=== PATIENT | female | born 1940 | race Caucasian/White ===

== ENCOUNTER → 2018-11-28 15:23 | Outpatient (ROUT) | payer MEDICARE, SELFPAY ==
[2018-11-28 16:39] LABS: Add Manual Diff / Slide Review NO; Basophils Absolute Auto 100 /uL (0-100); Basophils Percent Auto 1.3 % (0-2); Eosinophils Absolute Auto 200 /uL (0-450); Eosinophils Percent Auto 4.3 % (2-4); Hemoglobin 13.1 g/dL (12.0-16.0); Lymphocytes Absolute Auto 1500 /uL (1100-4500); Lymphocytes Percent Auto 26.5 % (25-40); Mean Corpuscular HGB Conc 33.6 % (30-36); Mean Corpuscular Hemoglobin 32.8 PG (26-34); Mean Corpuscular Volume 97.6 fL (80-100); Monocytes Absolute Auto 600 /uL (0-900); Neutrophils Absolute Auto 3200 /uL (1500-7000); Neutrophils Percent Auto 57.9 % (50-75); Platelet Count 185 X10^3/uL (150-400); Red Cell Distribution Width 13.2 % (11.6-14.8); White Blood Cell Count 5.6 X10^3/uL (4.5-11.0)
[2018-11-28 16:48] LABS: Alanine Aminotransferase 176 IU/L (9-52); Albumin 3.6 g/dL (3.5-5.0); Albumin Globulin Ratio 1.2 (1.0-2.8); Alkaline Phosphatase 78 U/L (38-126); Aspartate Aminotransferase 156 IU/L (14-36); BUN Creatinine Ratio 21.7 (6-22); Blood Urea Nitrogen 13 mg/dL (7-17); Calcium 8.7 mg/dL (8.4-10.2); Carbon Dioxide 27 mmol/L (22-32); Chloride 102 mmol/L (98-107); Cholesterol 153 mg/dL (140-199); Estimated Glomerular Filt Rate > 60.0 mL/min (>60); Globulin 2.9 g/dL (1.7-4.1); Glucose 86 mg/dL (80-110); HDL Cholesterol 62 mg/dL (40-60); HEMOLYSIS < 15 (0-50); LDL Cholesterol Calculated 76 mg/dL (<100); Potassium 4.2 mmol/L (3.4-5.1); Sodium 137 mmol/L (137-145); Total Protein 6.5 g/dL (6.3-8.2); Triglycerides 74 mg/dL (35-150)
[2018-11-28 16:56] LABS: Hemoglobin A1C% w Est Avg Glu 5.3 % (4.0-6.0)
[2018-11-28 17:00] LABS: Bacteria Urine None Seen; RBC Urine None Seen (0-5/HPF); WBC Urine None Seen (0-5/HPF)
[2018-11-28 17:04] LABS: Vitamin D 25 Hydroxy (D3) 22.5 ng/mL (30.0-100.0)
[2018-11-28 17:17] LABS: TSH w/ Reflex to FT4 0.03 uIU/mL (0.47-4.68)
[2018-11-28 18:22] LABS: Appearance Urine UA CLEAR; Bilirubin Urine UA NEGATIVE (NEGATIVE); Color Urine UA YELLOW; Glucose Urine UA NEGATIVE (Negative); Ketones Urine UA NEGATIVE (NEGATIVE); Leukocyte Esterase Urine UA NEGATIVE (NEGATIVE); Nitrite Urine UA NEGATIVE (Negative); Occult Blood Urine UA NEGATIVE (Negative); Protein Urine UA NEGATIVE (Negative); Specific Gravity Urine UA <=1.005 (1.000-1.035); Urobilinogen Urine UA 0.2 E.U./dL (0.2)
[2018-11-28 18:39] LABS: Culture Indicated Urine Cult Not Indicated; Urine Comments Microscopic Normal
[2018-11-28 19:54] LABS: Free T4, Direct Thyroxine 3.02 ng/dL (0.78-2.19)
== END ==
PROVIDERS: PCP Physician Assistant; Visit Provider Internal Medicine
DX: Z00.00 Encounter for general adult medical examination without abnormal findings (principal); R73.01 Impaired fasting glucose; Z13.820 Encounter for screening for osteoporosis; D72.810 Lymphocytopenia; Z13.220 Encounter for screening for lipoid disorders; E03.9 Hypothyroidism, unspecified; E55.9 Vitamin D deficiency, unspecified
CPT/HCPCS: 80053; 80061; 81001; 82306; 83036; 84439; 84443; 85025

== ENCOUNTER → 2018-12-01 13:27 | Outpatient (CLI) | payer MEDICARE, SELFPAY ==
--- NOTE | 2018-12-01 | DI.MG.S_ITS ---
BILATERAL DIGITAL SCREENING MAMMOGRAM 3D/2D WITH CAD: 12/01/2018 CLINICAL: Routine screening. Family history of breast cancer. Comparison is made to exams dated: 03/10/2013 mammogram, 02/14/2011 mammogram, and 09/11/2006 mammogram - [facility]. The tissue of both breasts is predominantly fatty. Current study was also evaluated with a Computer Aided Detection (CAD) system. There is a new equal density mass in the left breast at 2 o'clock anterior depth. There is possible architectural distortion associated with the mass. There also is a new oval equal density focal asymmetry in the left breast at 12 o'clock posterior depth. No other significant masses, calcifications, or other findings are seen in either breast. IMPRESSION: INCOMPLETE: NEEDS ADDITIONAL IMAGING EVALUATION The new equal density mass in the left breast at 2 o'clock anterior depth is indeterminate. A diagnostic mammogram and ultrasound is recommended. The new oval equal density focal asymmetry in the left breast at 12 o'clock posterior depth is indeterminate. A diagnostic mammogram and possible ultrasound is recommended. This exam was interpreted at Station ID: [id number]. NOTE: For mammograms, a report in lay terms will be sent to the patient. Approximately 15% of breast malignancies will not be visualized mammographically. In the management of a palpable breast mass, a negative mammogram must not discourage biopsy of a clinically suspicious lesion. Electronically Signed By: Rah Guzman M.D. slc/:12/01/2018 14:31:13 letter sent: Additional Imaging Needed ACR BI-RADS Category 0: Incomplete [id number]
== END ==
PROVIDERS: PCP Internal Medicine; Visit Provider Internal Medicine
DX: Z12.31 Encounter for screening mammogram for malignant neoplasm of breast (principal); Z80.3 Family history of malignant neoplasm of breast; M85.851 Other specified disorders of bone density and structure, right thigh; Z78.0 Asymptomatic menopausal state; E07.9 Disorder of thyroid, unspecified
CPT/HCPCS: 77063; 77067; 77080

== ENCOUNTER → 2018-12-22 12:55 | Outpatient (CLI) | payer MEDICARE, SELFPAY ==
[2018-12-22 14:06] LABS: Alanine Aminotransferase 174 IU/L (9-52); Albumin 3.9 g/dL (3.5-5.0); Albumin Globulin Ratio 1.4 (1.0-2.8); Alkaline Phosphatase 77 U/L (38-126); Amylase 83 U/L (30-110); Aspartate Aminotransferase 197 IU/L (14-36); Bilirubin Total 0.6 mg/dL (0.2-1.3); Bilirubin Unconjugated 0.4 mg/dL (0.0-1.1); Gamma Glutamyl Transpeptidase 31 U/L (12-43); Globulin 2.8 g/dL (1.7-4.1); HEMOLYSIS < 15 (0-50); Lipase 189 U/L (23-300); Total Protein 6.7 g/dL (6.3-8.2)
[2018-12-22 14:22] LABS: Free T4, Direct Thyroxine 2.23 ng/dL (0.78-2.19)
[2018-12-22 14:36] LABS: Thyroid Stimulating Hormone 0.03 uIU/mL (0.47-4.68)
[2018-12-22 14:41] LABS: Ferritin 42.3 ng/mL (11.1-264)
[2018-12-22 17:00] LABS: Hepatitis B Surface Antigen NEGATIVE s/c (NEGATIVE)
[2018-12-22 17:18] LABS: Hep C Virus Ab w/Reflex Quant NEGATIVE s/c (NEGATIVE)
[2018-12-25 15:03] LABS: Hepatitis A Ab Total Nonreactive (Nonreactive); Hepatitis B Core Antibody Nonreactive (Nonreactive)
[2018-12-26 09:56] LABS: Hepatitis B Surf Ab Qualitativ Nonreactive (Nonreactive)
== END ==
PROVIDERS: PCP Internal Medicine; Visit Provider Internal Medicine
DX: E03.9 Hypothyroidism, unspecified (principal)
CPT/HCPCS: 36415; 80076; 82150; 82728; 82977; 83690; 84439; 84443; 86704; 86706; 86803; 87340

== ENCOUNTER → 2018-12-30 12:44 | Outpatient (CLI) | payer MEDICARE, SELFPAY ==
--- NOTE | 2018-12-30 | DI.MG.S_ITS ---
UNILATERAL LEFT DIGITAL DIAGNOSTIC MAMMOGRAM 3D/2D WITH ADDITIONAL VIEWS: 12/30/2018 CLINICAL: Additional evaluation requested from prior study. Comparison is made to exams dated: 12/01/2018 mammogram - [facility], 03/10/2013 mammogram, and 02/14/2011 mammogram - [facility]. The tissue of left breast is predominantly fatty. There is a mass in the left breast at 2 o'clock anterior depth. This is seen in additional views. There is architectural distortion associated with the mass. There also is a new oval equal density focal asymmetry in the left breast at 12 o'clock posterior depth. This is seen in additional views. No other significant masses or calcifications are seen in the breast. IMPRESSION: INCOMPLETE: NEEDS ADDITIONAL IMAGING EVALUATION The mass in the left breast at 2 o'clock anterior depth is indeterminate. The new oval equal density focal asymmetry in the left breast at 12 o'clock posterior depth is indeterminate. A targeted ultrasound of the left breast is recommended and will be performed immediately following this exam. This exam was interpreted at Station ID: [id number]. NOTE: For mammograms, a report in lay terms will be sent to the patient. Approximately 15% of breast malignancies will not be visualized mammographically. In the management of a palpable breast mass, a negative mammogram must not discourage biopsy of a clinically suspicious lesion. Electronically Signed By: Brianna Bocanegra M.D. lk/:12/30/2018 14:24:48 ACR BI-RADS Category 0: Incomplete [id number]
--- NOTE | 2018-12-30 | DI.US.S_ITS ---
ULTRASOUND OF LEFT BREAST: 12/30/2018 CLINICAL: Patient returns for additional imaging over two suspected masses in the left breast. Comparison is made to exams dated: 12/30/2018 mammogram, 12/01/2018 mammogram - [facility], 03/10/2013 mammogram, 02/14/2011 mammogram, 09/11/2006 mammogram, and 08/29/2005 mammogram - [facility]. Color flow and real-time ultrasound of the left breast were performed on the areas of interest. [place] scale images of the real-time examination were reviewed. There is a 0.9 cm x 1 cm x 0.8 cm irregular mass with a spiculated margin in the left breast at 2 o'clock anterior depth. This irregular mass is hypoechoic. This correlates with mammography findings. There also is an incidentally noted 0.5 cm x 0.3 cm x 0.3 cm mass in the left breast at 2 o'clock anterior depth adjacent to the spiculated mass described above. This mass is hypoechoic and likely represents a small satelite lesion. Additionally, there is a 0.7 cm x 0.7 cm x 0.5 cm irregular mass in the left breast at 11 o'clock middle depth. This irregular mass is hypoechoic. This correlates with mammography findings. IMPRESSION: HIGHLY SUGGESTIVE OF MALIGNANCY The 0.9 cm x 1 cm x 0.8 cm irregular mass in the left breast at 2 o'clock anterior depth is highly suggestive of malignancy. An ultrasound guided biopsy is recommended. The 0.5 cm x 0.3 cm x 0.3 cm mass in the left breast at 2 o'clock anterior depth likely represents a msall satelite lesion and is highly suggestive of malignancy. The 0.7 cm x 0.7 cm x 0.5 cm irregular mass in the left breast at 11 o'clock middle depth is at a moderate suspicion for malignancy. An ultrasound guided biopsy is recommended. This exam was interpreted at Station ID: [id number]. SUMMARY: This was discussed with the patient by the radiologist at the time of the exam by Dr. Barajas. Electronically Signed By: Brianna mejía/:12/30/2018 17:44:55 letter sent: Biopsy Required Ultrasound BI-RADS: 5 Highly suggestive of malignancy
--- NOTE | 2018-12-30 | DI.US.S_ITS ---
PROCEDURE: US ABDOMEN COMPLETE INDICATIONS: add views left breast TRANSAMINITIS TECHNIQUE: Real-time scanning was performed of the abdominal and retroperitoneal organs, with image documentation. COMPARISON: None. FINDINGS: Liver: Liver is normal in size. Multiple simple appearing cysts are seen, with the largest seen on the right measuring up to 2.2 cm. This cyst demonstrates septations. Gallbladder: A non-mobile likely stone can be seen involving the lateral. The gallbladder itself is elongated. The gallbladder wall is not thickened, measuring 3 mm or less. No specific pericholecystic fluid is seen. The sonographic Martinez sign is negative. Biliary ducts: There is biliary dilatation seen, with the common bile duct measuring 9 mm. Normal is 6-7 mm or less in diameter, or 10 mm or less post-cholecystectomy. Pancreas: Not well-seen. Spleen: Spleen is normal in size and homogeneous in echotexture. Kidneys: Kidneys are normal in size and echotexture. Right kidney measures 10.5 cm long; left kidney measures 10.8 cm long. No hydronephrosis or nephrolithiasis. No solid masses. Aorta: Visualized aorta is normal in caliber at less than 3 cm. Iliacs: Not seen, obscured by overlying bowel gas. IVC: Intrahepatic inferior vena cava is patent. Miscellaneous: No free abdominal fluid. This study is limited by body habitus. IMPRESSION: Enlarged gallbladder with a nonmobile gallstone seen involving the gallbladder neck. No additional sonographic signs of cholecystitis are seen. Mild biliary dilatation is seen. Liver cysts are seen, with the largest seen on the right measuring 2.2 centimeters. Limited quality scan, secondary to body habitus. Dictated by: Monster Lofton M.D. on 12/30/2018 at 17:38 Approved by: Monster Lofton M.D. on 12/30/2018 at 17:41
[2018-12-30 13:14] LABS: Add Manual Diff / Slide Review NO; Basophils Absolute Auto 100 /uL (0-100); Eosinophils Absolute Auto 200 /uL (0-450); Eosinophils Percent Auto 2.9 % (2-4); Hematocrit 39.7 % (36-46); Hemoglobin 13.4 g/dL (12.0-16.0); Lymphocytes Absolute Auto 1700 /uL (1100-4500); Lymphocytes Percent Auto 25.9 % (25-40); Mean Corpuscular HGB Conc 33.7 % (30-36); Mean Corpuscular Hemoglobin 32.5 PG (26-34); Mean Corpuscular Volume 96.4 fL (80-100); Monocytes Absolute Auto 500 /uL (0-900); Monocytes Percent Auto 8.2 % (3-14); Neutrophils Absolute Auto 4100 /uL (1500-7000); Platelet Count 182 X10^3/uL (150-400); Red Blood Cell Count 4.12 X10^6/uL (4.0-5.2); Red Cell Distribution Width 13.1 % (11.6-14.8); White Blood Cell Count 6.6 X10^3/uL (4.5-11.0)
[2018-12-30 13:53] LABS: Hemoglobin A1C% w Est Avg Glu 5.1 % (4.0-6.0)
[2018-12-30 14:05] LABS: Cholesterol 153 mg/dL (140-199); HDL Cholesterol 63 mg/dL (40-60); LDL Cholesterol Calculated 73 mg/dL (<100); Triglycerides 85 mg/dL (35-150)
[2018-12-30 14:06] LABS: Alanine Aminotransferase 219 IU/L (9-52); Albumin 3.8 g/dL (3.5-5.0); Albumin Globulin Ratio 1.3 (1.0-2.8); Alkaline Phosphatase 78 U/L (38-126); Aspartate Aminotransferase 226 IU/L (14-36); BUN Creatinine Ratio 23.3 (6-22); Bilirubin Total 0.5 mg/dL (0.2-1.3); Blood Urea Nitrogen 14 mg/dL (7-17); Calcium 9.2 mg/dL (8.4-10.2); Carbon Dioxide 26 mmol/L (22-32); Chloride 102 mmol/L (98-107); Estimated Glomerular Filt Rate > 60.0 mL/min (>60); Glucose 95 mg/dL (80-110); HEMOLYSIS < 15 (0-50); Potassium 4.4 mmol/L (3.4-5.1); Sodium 136 mmol/L (137-145); Total Protein 6.8 g/dL (6.3-8.2)
[2018-12-30 14:57] LABS: Vitamin D 25 Hydroxy (D3) 35.5 ng/mL (30.0-100.0)
[2018-12-30 15:12] LABS: TSH w/ Reflex to FT4 0.03 uIU/mL (0.47-4.68)
== END ==
PROVIDERS: PCP Internal Medicine; Visit Provider Internal Medicine
DX: R92.8 Other abnormal and inconclusive findings on diagnostic imaging of breast (principal); N63.22 Unspecified lump in the left breast, upper inner quadrant; N63.21 Unspecified lump in the left breast, upper outer quadrant; K80.80 Other cholelithiasis without obstruction; K76.89 Other specified diseases of liver; R74.0 Nonspecific elevation of levels of transaminase and lactic acid dehydrogenase [LDH]; K83.8 Other specified diseases of biliary tract
CPT/HCPCS: 36415; 76642; 76700; 77065; 80053; 80061; 82306; 83036; 84439; 84443; 85025; G0279

== ENCOUNTER → 2019-01-09 13:30 | Outpatient (CLI) | payer MEDICARE, SELFPAY ==
[2019-01-09 13:53] LABS: Bacteria Urine None Seen; RBC Urine None Seen (0-5/HPF)
[2019-01-09 14:02] LABS: Appearance Urine UA CLEAR; Bilirubin Urine UA NEGATIVE (NEGATIVE); Color Urine UA YELLOW; Glucose Urine UA NEGATIVE (Negative); Ketones Urine UA NEGATIVE (NEGATIVE); Leukocyte Esterase Urine UA TRACE (NEGATIVE); Nitrite Urine UA NEGATIVE (Negative); Occult Blood Urine UA NEGATIVE (Negative); Protein Urine UA NEGATIVE (Negative); Urobilinogen Urine UA 0.2 E.U./dL (0.2)
[2019-01-09 14:06] LABS: pH Urine UA 5.5 (4.5-8.0)
[2019-01-09 14:11] LABS: Squamous Epithelial Cell Urine 5-10 /HPF (0-5/HPF); WBC Urine 5-10/HPF (0-5/HPF)
[2019-01-09 14:40] LABS: Creatine Kinase 81 U/L (30-135)
[2019-01-13 17:20] LABS: Myoglobin 49 mcg/L (< 67)
[2019-01-14 14:16] LABS: Aldolase 10.7 U/L (< 8.2)
== END ==
PROVIDERS: PCP Internal Medicine; Visit Provider Internal Medicine
DX: R74.8 Abnormal levels of other serum enzymes (principal)
CPT/HCPCS: 36415; 81001; 82085; 82550; 83874; 86140

== ENCOUNTER → 2019-01-13 12:19 | Outpatient (CLI) | payer MEDICARE, SELFPAY ==
[2019-01-13 13:09] LABS: Erythrocyte Sedimentation Rate 5 MM/HR (0-20)
== END ==
PROVIDERS: PCP Internal Medicine; Visit Provider Internal Medicine
DX: R74.8 Abnormal levels of other serum enzymes (principal)
CPT/HCPCS: 85651

== ENCOUNTER → 2019-01-22 08:40 | Outpatient (CLI) | payer MEDICARE, SELFPAY ==
--- NOTE | 2019-01-22 | DI.MG.S_ITS ---
UNILATERAL LEFT DIGITAL DIAGNOSTIC MAMMOGRAM POST-NEEDLE BIOPSY: 01/22/2019 CLINICAL: Post clip placement. Left breast mass. Comparison is made to exams dated: 12/30/2018 mammogram, 12/01/2018 mammogram - [facility], and 03/10/2013 mammogram - Located within [facility]. The tissue of left breast is predominantly fatty. There are biopsy clips in the left breast at biopsy sites (2:00 and 11:00). IMPRESSION: The biopsy clips are at biopsy sites. This exam was interpreted at Station ID: [id number]. NOTE: For mammograms, a report in lay terms will be sent to the patient. Approximately 15% of breast malignancies will not be visualized mammographically. In the management of a palpable breast mass, a negative mammogram must not discourage biopsy of a clinically suspicious lesion. Electronically Signed By: Cindy Barajas M.D. fx/:01/22/2019 11:04:48 ACR BI-RADS Category n/a
--- NOTE | 2019-01-22 | DI.US.S_ITS ---
MULTIPLE ULTRASOUND GUIDED BIOPSIES LEFT BREAST USING VACUUM DEVICE WITH POST MAMMOGRAPHIC AND ULTRASOUND IMAGIN01/22/2019 CLINICAL: Left breast masses x 2. PATIENT CONSENT: Risks (minor bleeding, infection, vasovagal reaction and repeat procedure), benefits and alternatives were explained to the patient and written informed consent was obtained. Correlation is made to exams dated: 01/22/2019 mammogram, 12/30/2018 ultrasound, 12/30/2018 mammogram, 12/01/2018 mammogram - [facility], 03/10/2013 mammogram, and 02/14/2011 mammogram - [facility]. An ultrasound guided biopsy using real-time ultrasound was performed for the mass located in the left breast at 2 o'clock. This was described on the previous ultrasound report. The skin was prepped in the usual manner. Local anesthetic was administered to the access site. The abnormality was approached from the lateral aspect. A 13 gauge biopsy needle was placed adjacent to the abnormality under ultrasound guidance. Once the needle was documented to be in the correct location, five specimens were obtained using the Mammotome biopsy system. Post procedure mammographic and ultrasound imaging demonstrates the clip at the targeted area. The specimens were sent to the laboratory for pathological analysis. A second ultrasound guided biopsy using real-time ultrasound was performed for the abnormality located in the left breast at 11 o'clock posterior depth. The skin was prepped in the usual manner. A biopsy needle was placed adjacent to the abnormality under ultrasound guidance. Once the needle was documented to be in the correct location, a specimen was obtained using an automated biopsy gun. The specimen was sent to the laboratory for pathological analysis. IMPRESSION: ULTRASOUND GUIDED BIOPSY MALIGNANT Ultrasound guided biopsy of the mass in the left breast at 2 o'clock posterior depth was successful. 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 Ultrasound guided biopsy of the abnormality in the left breast at 11 o'clock posterior depth was performed. Pathology indicates ADH consistent with a high risk lesion. This exam was interpreted at Station ID: [id number]. Cindy Barboza M.D. fx,ddp/:01/27/2019 17:05:00
--- NOTE | 2019-01-22 | PATH_ITS ---
[facility] Accession Number: [id number] . 01 Material submitted: . PART A: breast - LEFT BREAST 2:30 MASS 6 CM FN PART B: breast - LEFT BREAST 11:00 MASS 9 CM FN . 01 Clinical history: . MASS LEFT BREAST . 01 Diagnosis: A. Left Breast, 2:30 O'clock Mass, 6 cm from Nipple, Biopsy: Invasive (ductal) carcinoma, grade 2 of 3 ([place] combined histologic grade, total score 6/9) with the following features: 1. Tubular differentiation: Moderate degree. (2/3) 2. Nuclear pleomorphism: High. (3/3) 3. Mitotic rate: Low. (1/3); see comment. 4. Size of invasive carcinoma: Present on two cores, single largest dimension at least 3 mm on this limited sample. 5. Ductal carcinoma in situ: Focally suspected, with the following features: a. Nuclear grade: Intermediate. b. Necrosis: Not identified. 6. Calcifications: Absent. 7. Lymphatic space invasion: Absent. 8. Prognostic markers: a. Estrogen receptor status: Positive (95% tumor cells staining, staining intensity: Strong). b. Progesterone receptor status: Positive (95% tumor cells staining, staining intensity: Moderate to Strong). c. HER2 status: Negative for protein overexpression by IHC (0 to 1+); see comment. . B. Left Breast, 11:00 O'clock Mass, 9 cm from Nipple, Biopsy: Atypical ductal hyperplasia; see comment. Negative for invasive malignancy. [facility] 01/26/2019 2226 Local . 01 Comment: A. The amount of the invasive carcinoma present in this sample is limited. The limited number of high-power hutchison precludes accurate assessment of the mitotic activity, hence the invasive carcinoma is at least a grade 2/3 (at least a [place] combined histologic score of 6/9). Similarly, a small amount of invasive carcinoma is present on the tissue level for HER-2 immunohistochemistry. Repeat HER-2 immunohistochemistry is recommended on the excision. . B. Several foci of atypical intraductal proliferation are present; while these features border on low-grade ductal carcinoma in situ, they are quantitatively insufficient for our threshold (the foci are each less than 2mm in size), and hence, at this juncture, are best categorized as atypical ductal hyperplasia. . 01 Electronically signed: . Lindsey Huerta MD, Pathologist NPI- [id number] . 01 Gross description: . Received two formalin-filled containers, both labeled with the patient's name: . A. In a container labeled #1. 2:30 position, the specimen is received with a plastic filter in container, sample loose in container and consists of four fragments of light yellow-mahoney soft tissue which range in size from 0.3 x 0.2 x 0.2 cm to 0.4 x 0.2 x 0.2 cm. The specimen is entirely submitted in cassette A. B. In a container labeled #2: 11 o'clock position, the specimen is received with a plastic filter in container, sample loose in container and consists of multiple yellow-bright soft tissue which range in size from less than 0.1 cm to 1.5 x 0.3 x 0.2 cm. The specimen is filtered and entirely submitted in cassette B. . Collection date: 01/22/2019. Collection time: Part A - 10:00 a.m.; Part B - 10:30 a.m. Total fixation time: approximately 10 hours. ([id number]) /TEJAL 01/23/2019 [facility] . 01 Microscopic: . A1. P63 and smooth muscle myosin immunostains are performed on A1, with appropriately staining external controls. They are predominantly lost (in support of invasive carcinoma), however are focally present around areas suspicious of ductal carcinoma in situ. - Predictive marker immunohistochemical studies are performed on block A1 with the invasive carcinoma showing the following results: Estrogen receptor (SP1): Positive (95% tumor cells, Strong intensity). Progesterone receptor (1E2): Positive (95% tumor cells, Moderate to Strong intensity). Her2 (4B5): Negative (0 or 1+) for protein overexpression by immunohistochemistry. . B. Foci of atypical intraductal proliferation are evaluated with a panel of immunostains, with appropriately staining external controls. The intraductal proliferation demonstrates membranous E-cadherin and Beta-catenin, in support of ductal phenotype, and has loss of CK5/6 with overexpression of ER, in support of a neoplastic intraductal proliferation. . Internal controls for ER and NC are positive. Cold ischemic time is <5 minutes. The scoring criteria for breast biomarkers by immunohistochemistry is based on the ASCO/CAP guidelines (Donta AC et al, J Clin Oncol: 2017Oct 01;36(20):0034-2513 and Mariia ME et al, Arch Pathol Lab Med: 2009;134(6):907-22). Deparaffinized sections of formalin fixed tissue (along with appropriate positive controls) are incubated with the above antibody(s). Using the automated Cardback stainer, tissue is incubated with the designated antibody which is then localized by a non-biotin, dual polymer detection system. The external controls are reviewed for appropriate reactivity and found to be adequate. Results on the target cell population are indicated above. These tests have not been validated on decalcified tissue. This test was developed and its performance characteristics determined by [employer]. It has not been cleared or approved by the U.S. Food and Drug Administration. The FDA has determined that such clearance or approval is not necessary. This test is used for clinical purposes. It should not be regarded as investigational or for research. . 01 Pathologist provided ICD-10: C50.112 . 01 CPT . 241150, 854584, 221022, 992931, 523580, V77824, J28368 Performed at: 01 [facility] [address] [place] [address] [address], [place], [place] [id number] MD Gianni Lee MD Phone: [phone]
--- NOTE | 2019-03-11 15:21 | ONC.MSW ---
Description: New Referral Navigation T/C Activity: Left a message for pt confirming that we received her referral, introduced myself as the navigator and briefly explained role as offering ongoing assistance and coordination. Relayed that the schedulers would be f/u to get her scheduled into our next available urgent initial consult visit time. Encouraged her to call me should she have any further questions or needs prior to her appt.
== END ==
PROVIDERS: PCP Internal Medicine; Visit Provider Internal Medicine
DX: C50.412 Malignant neoplasm of upper-outer quadrant of left female breast (principal); N60.92 Unspecified benign mammary dysplasia of left breast; Z17.0 Estrogen receptor positive status [ER+]
CPT/HCPCS: 19083; 19084; 77065

== ENCOUNTER 2019-02-24 06:39 | Day surgery (SDC) | payer MEDICARE, SELFPAY ==
[2019-02-23 14:40] VITALS: BMI 28.2
[2019-02-24] VITALS (9 sets, daily range): BP systolic 126–168; BP diastolic 73–96; PULSE 61–89; RESP 8–24; TEMP 36.2–36.7; O2SAT 91–99; BMI 27.3
--- NOTE | 2019-02-24 | PATH_ITS ---
[facility] Accession Number: [id number] . 01 Material submitted: . PART A: breast - 12 O'CLOCK BREAST BIOPSY PART B: breast - 12 O'CLOCK BREAST BIOPSY MEDIAL MARGIN PART C: breast - 12 O'CLOCK BREAST BIOPSY LATERAL MARGIN PART D: breast - 12 O'CLOCK BREAST BIOPSY SUPERIOR MARGIN PART E: breast - 12 O'CLOCK BREAST BIOPSY INFERIOR MARGIN PART F: breast - 12 O'CLOCK BREAST BIOPSY POSTERIOR MARGIN PART G: breast - 2 O'CLOCK BREAST BIOPSY PART H: breast - 2 O'CLOCK BREAST BIOPSY MEDIAL MARGIN PART I: breast - 2 O'CLOCK BREAST BIOPSY LATERAL MARGIN PART J: breast - 2 O'CLOCK BREAST BIOPSY SUPERIOR MARGIN PART K: breast - 2 O'CLOCK BREAST BIOPSY INFERIOR MARGIN PART L: breast - 2 O'CLOCK BREAST BIOPSY POSTERIOR MARGIN PART M: lymph node - LEFT SENTINEL NODE . 01 Clinical history: . A: MARKED- SHORT = SUPERIOR, LONG = LATERAL G: MARKED- SHORT - SUPERIOR, LONG = LATERAL . 01 Diagnosis: A. 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 Tumor size (invasive component): 0.9 cm, by microscopic measurement. 2. Nuclear pleomorphism: High. (3/3) 3. Mitotic grade: Intermediate. (2/3) 4. Tubular differentiation: Little or none. (3/3) 5. Ductal carcinoma in situ (DCIS): Present, as follows: a. Nuclear grade: Intermediate. b. Necrosis: Focally present (single cell necrosis). c. Extent: Present on multiple slides, corresponding to tissue slices 2-4, spanning approximately 1.2 cm. 6. Calcifications: Present, in association with DCIS. 7. Lymphatic Space Invasion: Not present. 8. Resection Margins: a. Invasive carcinoma: Positive at superior margin, 0.1 cm from the anterior and medial margins, 0.3 cm from the posterior margin, and more than 1.0 cm from the remaining margins; see Parts B, C, D, E and F below for final margins. b. DCIS: Positive at the junction between superior and anterior margins and at a cauterized margin between the anterior and inferior margins (block A2), 0.3 cm from the inferior margin, 0.4 cm from the posterior and medial margins, and more than 1.0 cm from the lateral margin; see parts B, C, D, E and F below for final margins. 9. Prognostic markers performed on block A3: a. Estrogen receptor status: Positive (> 99% tumor cells staining, Staining intensity: Strong). b. Progesterone receptor status: Positive (10% tumor cells staining, Staining intensity: Strong). c. HER-2 status: Negative for protein overexpression by immunohistochemistry (0). 10. Regional lymph node status: Not included in this part (see part M). 11. Additional findings: a. Biopsy site: Present. b. Skeletal muscle: Present, uninvolved. c. Skin and nipple: Not present for evaluation. 12. Pathologic stage: see part G. . B. Left Breast, 12 o'clock, Medial Margin, Excision: No carcinoma identified. Benign fibroadipose and skeletal muscle tissue. . C. Left Breast, 12 o'clock, Lateral Margin, Excision: No carcinoma identified. Benign fibroadipose and skeletal muscle tissue. . D. Left Breast, 12 o'clock, Superior Margin, Excision: No carcinoma identified. Benign fibroadipose tissue. . E. Left Breast, 12 o'clock, Inferior Margin, Excision: No carcinoma identified. Benign fibroadipose and skeletal muscle tissue. . F. Left Breast, 12 o'clock, Posterior Margin, Excision: No carcinoma identified. Benign fibroadipose and skeletal muscle tissue. . G. Left Breast, 2 o'clock, Partial Mastectomy: Invasive (ductal) carcinoma, grade 2 of 3 ([place] combined histologic grade, total score 7/9), with the following features: 1. Tumor size (invasive component): 1.9 cm mass and a 0.3 cm satellite focus of invasive carcinoma (by microscopic measurement). 2. Nuclear pleomorphism: High. (3/3) 3. Mitotic grade: Intermediate. (2/3) 4. Tubular differentiation: Moderate degree. (2/3) 5. DCIS: Present, as follows: a. Nuclear grade: Intermediate to high. b. Necrosis: Present (comedo necrosis). c. Extent: Present on multiple slides, corresponding to tissue slices 6-11, spanning approximately 2.5 cm. 6. Calcifications: Present, in association with invasive carcinoma, DCIS, and benign breast parenchyma. 7. Lymphatic invasion: Not identified. 8. Resection margins: a. Invasive carcinoma: Negative; 0.2 cm from the anterior margin, and more than 1 cm from the remaining margins; see parts H, I, J, K, and L below for final margins. b. DCIS: Positive at anterior margin (Block G9) and < 0.05 cm from the anterior margin (Block G10), 0.4 cm from the superior margin, and more than 1 cm from the remaining margins; see parts H, I, J, K, and L below for final margins. 9. Prognostic markers performed on block G16: a. Estrogen receptor status: Positive (> 99% tumor cells staining, Staining intensity: Strong). b. Progesterone receptor status: Positive (> 95% tumor cells staining, Staining intensity: Strong). c. HER-2 status: Negative for protein overexpression by immunohistochemistry (0-1+). 10. Regional lymph node status: Not included in this part (see part M). 11. Additional findings: a. Biopsy site: Present. b. Background breast: Fibrocystic change including focal usual ductal hyperplasia, columnar cell change, microcysts, and apocrine metaplasia. c. Skeletal muscle: Not present for evaluation. d. Skin and nipple: Not present for evaluation. 12. Pathologic stage: pT1c(m) pNx; see comment. . H. Left Breast, 2 o'clock, Medial Margin, Excision: Breast parenchyma with incidental microscopic intraductal papilloma (0.1 cm) and associated usual ductal hyperplasia, and columnar cell change/hyperplasia. Microcalcifications associated with media of vessels. Negative for atypia, carcinoma in situ, and malignancy. . I. Left Breast, 2 o'clock, Lateral Margin, Excision: No carcinoma identified. Benign fibroadipose tissue. . J. Left Breast, 2 o'clock, Superior Margin, Excision: Fibrofatty breast parenchyma. Negative for atypia, carcinoma in situ, and malignancy. . K. Left Breast, 2 o'clock, Inferior Margin, Excision: Fibrofatty breast parenchyma with focal columnar cell change and scattered microcalcifications. Negative for atypia, carcinoma in situ, and malignancy. . L. Left Breast, 2 o'clock, Posterior Margin, Excision: No carcinoma identified. Benign fibroadipose and skeletal muscle tissue. . M. Left [place] Lymph Node, Excisional Biopsy: No lymphoid tissue identified. Benign fibrofatty and fibrovascular tissue. [facility] 03/01/2019 1244 Local . 01 Comment: Based on the presence of two grossly distinct masses with dissimilar morphologies and immunophenotype (specifically grade and LA status), these masses likely represent two simultaneous ipsilateral primary carcinomas of the left breast. The current pathologic stage is based on the larger mass (part G). . In part A (12 o'clock), the size of the invasive carcinoma is estimated based on an approximated full thickness involvement of 2 contiguous slices each about 0.48 cm in thickness (2 slices x 0.48 cm = about 0.9-1 cm). . In part G (2 o'clock), a larger mass and a smaller satellite focus of invasive carcinoma are present, 0.5 cm apart, and are morphologically and immunophenotypically similar. The size of the larger mass is estimated based on full-thickness involvement of 4 contiguous slices each about 0.48 cm in thickness (4 slices x 0.48 cm = about 1.9 cm). . 01 Electronically signed: Napoleon Huerta MD, Pathologist NPI- [id number] . 01 Gross description: . (A) Received: In formalin, labeled 12 o'clock breast BX. Specimen: Left partial mastectomy. Weight: 15 grams. Measurement: 1.5 cm anterior to posterior, 5.3 cm medial to lateral, and 3.6 cm superior to inferior. Skin ellipse: Absent. Wire: Present, penetrating at the central lateral superior aspect and terminating within the specimen. Margins: Oriented by surgeon with short superior, long lateral sutures and inked as follows: posterior=black; anterior=purple; superior=blue; inferior=green; medial=yellow; lateral=orange. Sliced: Medial to lateral into 11 slices. Lesions: One firm bright-white irregular lesion is identified. Size: 0.5 x 0.5 x 0.3 cm. Slices involved: Slices 1 and 2. Biopsy site: No obvious biopsy site is identified. The biopsy marker cannot be located. Distance to margins: 0.1 cm from the anterior, 0.5 cm from the posterior, 1.4 cm from the superior, 0.5 cm from the inferior, 0.1 cm from the medial, and 4.3 cm from the lateral margin. Other: The remaining cut surfaces consist of yellow lobulated unremarkable adipose tissue. No other nodules, masses or lesions are identified. Fixation time: The specimen was placed in formalin on 02/24/2019 with no time given. The approximate total fixation time is calculated to be 60 hours 30 minutes. Sections: A1: Slice 1, medial end of specimen, perpendicularly sectioned, lesion is present. A2: Slice 2, lesion is present. A3: Slice 3, lesion is present, tissue involved with localization wire. A4: Slice 4, tissue lateral to lesion, tissue also involving localization wire. A5-A6: Slice 5. A7-A8: Slice 6. A9-A10: Slice 7. A11-A12: Slice 8. A13-A14: Slice 9. A15-A16: Slice 10. A17-A18: Slice 11, lateral end of specimen, perpendicular. Note: The specimen is entirely submitted. After sectioning, the specimen was reviewed by Dr. Chris Huerta. (B) Received in formalin, labeled 12 o'clock breast margin medial, is an unoriented piece of bright-yellow adipose tissue (2.8 x 1.4 x 0.5 cm). No nodules, masses or lesions are identified. The smoother side is presumed to be the true medial margin and is inked yellow with a cut surface as lateral and inked orange. Serially sectioned and entirely submitted in cassettes B1-B2. (C) Received in formalin, labeled 12 o'clock breast margin lateral, is an unoriented piece of bright-yellow adipose tissue (2.3 x 1.5 x 0.4 cm). No nodules, masses or lesions are identified. The smooth side is presumed to be the true lateral margin and is inked orange while the cut surface is medial and inked yellow. Serially sectioned and entirely submitted in cassette C1. (D) Received in formalin, labeled 12 o'clock breast margin superior, is an unoriented piece of bright-yellow adipose tissue (2.2 x 2.2 x 0.8 cm). No nodules, masses or lesions are identified. The smooth surface is presumed to be the true superior margin and is inked blue while the cut surface is inferior and inked green. Serially sectioned and entirely submitted in cassettes D1-D2. (E) Received in formalin, labeled 12 o'clock breast margin inferior, is an unoriented piece of bright-yellow adipose tissue (1.7 x 1.0 x 0.5 cm). No nodules, masses or lesions are identified. The smooth surface is presumed to be the true inferior margin and is inked green while the cut surface is superior and inked blue. Serially sectioned and entirely submitted in cassette E1. (F) Received in formalin, labeled 12 o'clock breast margin posterior, is an unoriented piece of bright-yellow adipose tissue (1.0 x 0.7 x 0.4 cm). No nodules, masses or lesions are identified. The smooth surface is presumed to be the true posterior margin and is inked black while the cut surface is anterior and inked purple. Serially sectioned and entirely submitted in cassette F1. (G) Received: In formalin, labeled 2 o'clock breast BX. Specimen: Left partial mastectomy. Weight: 56 grams. Measurement: 2.7 cm anterior to posterior, 6.3 cm medial to lateral, and 6.6 cm superior to inferior. Skin ellipse: Absent. Wire: Present, penetrating at the anterior inferomedial aspect and ending in the central anterosuperior aspect. Margins: Oriented by surgeon with short superior suture, long lateral suture, and inked as follows: posterior=black; anterior=purple; superior=blue; inferior=green; medial=yellow; lateral=orange. Sliced: Medial to lateral into 13 slices. Lesions: One lesion is identified. Description: Firm, mahoney-white and ill defined. Size: 1.5 x 1.1 x 1.0 cm. Slices involved: Slice 7-10. Biopsy site: The biopsy site is identified within slice 9 which contains a metal biopsy marker clip. Distance to margins: 0.5 cm from the anterior margin, 0.9 cm from the posterior margin, 2.1 cm from the superior margin, 2.4 cm from the inferior margin, 1.8 cm from the medial margin, and 1.5 cm from the lateral margin. Slice 6, the tissue directly medial to the lesion is focally fibrous with no definitive lesion identified. This fibrous area is not included in the measurement of the lesion. The remaining cut surfaces are bright-yellow, lobulated, unremarkable adipose tissue. No other nodules, masses or lesions are identified. Fixation time: The specimen was placed in formalin on 02/24/2019 with no time given. The approximate total fixation time is calculated to be 60 hours 30 minutes. Sections: G1: Slice 1, medial end of specimen, perpendicular patient registration representative. G2: Slice 3, patient registration representative. G3: Slice 4, patient registration representative. G4-G7: Slice 5, tissue two slices medial to lesion, no lesion present. Slice entirely submitted. G8-G11: Slice 6, tissue directly medial to lesion, no definitive lesion present. Slice entirely submitted. G12: Slice 7, lesion is present, patient registration representative. Tissue involving localization wire. G13: Slice 8, mass present, tissue involving localization wire. G14-G15: Slice 9, mass is present, location of biopsy marker, patient registration representative. G16: Slice 10, mass is present, the cleft is inked yellow, patient registration representative. G17-G18: Slice 11, tissue directly lateral to lesion, no lesion grossly present, patient registration representative. G19: Slice 13, lateral end of specimen, perpendicular patient registration representative. Note: After sectioning, this specimen was reviewed by Dr. Chris Huerta. (H) Received in formalin, labeled 2 o'clock breast BX medial margin, is an unoriented piece of bright yellow adipose tissue (3.2 x 2.5 x 1.4 cm). No nodules, masses or lesions are identified. The smooth surface is presumed to be the true medial margin and is inked yellow while the cut surface is lateral and inked orange. Serially sectioned and entirely submitted in cassettes H1-H6. (I) Received in formalin, labeled 2 o'clock breast BX lateral margin, is an unoriented piece of bright-yellow adipose tissue (3.6 x 2.0 x 1.0 cm). No nodules, masses or lesions are identified. The smooth surface is presumed to be the true lateral margin and is inked orange while the cut surface is medial and inked yellow. Serially sectioned and entirely submitted in cassettes I1-I4. (J) Received in formalin, labeled 2 o'clock breast BX superior margin, are multiple unoriented pieces of bright-yellow adipose tissue (3.3 x 2.3 x 1.0 cm in aggregate). No nodules, masses or lesions are identified. The smooth surface is presumed to be the true superior margin and is inked blue while the cut surface is inferior and inked green. Serially sectioned and entirely submitted in cassettes J1-J3. (K) Received in formalin, labeled 2 o'clock breast BX inferior margin, is a piece of bright yellow adipose tissue (2.5 x 1.8 x 1.0 cm). No nodules, masses or lesions are identified. The smooth surface is presumed to be the true inferior margin and is inked green while the cut surface is superior and is inked blue. Serially sectioned and entirely submitted in cassettes K1-K3. (L) Received in formalin, labeled 2 o'clock breast BX posterior margin, is a piece of bright yellow adipose tissue (2.0 x 1.2 x 1.2 cm). No nodules, masses or lesions are identified. The smooth surface is presumed to be the true posterior margin and is inked black while the cut surface is anterior and inked purple. Serially sectioned and entirely submitted in cassettes L1-L2. (M) Received in formalin, labeled sentinel left node, are three pieces of bright-yellow adipose tissue (6.2 x 5.5 x 0.7 cm in aggregate). No definitive lymph nodes are identified. Piece #1 is serially sectioned and entirely submitted in cassette M1. Piece #2 is serially sectioned and entirely submitted in cassettes M2-M3. Piece #3 is serially sectioned and entirely submitted in cassettes M4-M6. Note: Before sectioning, the tissue was reviewed by Dr. Chris Huerta. ([id number]) /MRV 02/26/2019 [facility]6 Local . 01 Microscopic: . - In block G13, focal morphologic features suggestive of micropapillary architecture are evaluated with LILIA; LILIA does not show the inside out pattern, excluding micropapillary features. . - In block G15, focal area of invasive carcinoma is evaluated for lymphovascular space invasion with a D2-40 immunostain, and the results argue against lymphovascular space invasion. . - Predictive marker immunohistochemical studies are performed on block A3 with the invasive carcinoma showing the following results: * Estrogen receptor status: Positive (>99% tumor cells staining, staining intensity: strong, internal controls: Present). * Progesterone receptor status: Positive (10% tumor cells staining, staining intensity: strong, internal controls: Present). * HER-2 status: Negative for protein overexpression by immunohistochemistry (0). . - Predictive marker immunohistochemical studies are repeated on block G16 (given the scant lesional tissue on the prior biopsy) with the invasive carcinoma showing the following results: * Estrogen receptor status: Positive (>99% tumor cells staining, staining intensity: strong, internal controls: present). * Progesterone receptor status: Positive (>95% tumor cells staining, staining intensity: strong, internal controls: Present). * HER-2 status: Negative for protein overexpression by immunohistochemistry (0-1+). . Cold ischemic time is indeterminate. The scoring criteria for breast biomarkers by immunohistochemistry is based on the ASCO/CAP guidelines (Donta AC et al, J Clin Oncol: 2017Oct 01;36(20):0779-0729 and Mariia ME et al, Arch Pathol Lab Med: 2009;134(6):907-22). Deparaffinized sections of formalin fixed tissue (along with appropriate positive controls) are incubated with the above antibody(s). Using the automated [place] stainer, tissue is incubated with the designated antibody which is then localized by a non-biotin, dual polymer detection system. The external controls are reviewed for appropriate reactivity and found to be adequate. Results on the target cell population are indicated above. These tests have not been validated on decalcified tissue. This test was developed and its performance characteristics determined by [facility]. It has not been cleared or approved by the U.S. Food and Drug Administration. The FDA has determined that such clearance or approval is not necessary. This test is used for clinical purposes. It should not be regarded as investigational or for research. . 01 Pathologist provided ICD-10: C50.112 . 01 CPT . 731703, 392274, 876432, 027117, 671032, 170761, 772613, 489818, 221975, 883649, 222446, 811066, 466067, 123409, 366299, 600326, M78047, Z86816, 551554 Performed at: 01 [facility] [address] [address], [place], [place] [id number] MD Gianni Lee MD Phone: [phone]
--- NOTE | 2019-02-24 | DI.MG.S_ITS ---
MULTIPLE SPECIMENS LEFT BREAST: 02/24/2019 CLINICAL: Left breast specimen. Correlation is made to exams dated: 02/24/2019 localization, 01/22/2019 ultrasound biopsy, 01/22/2019 mammogram, and 12/30/2018 ultrasound [facility]. A surgical specimen was imaged for the previous biopsy site marker located in the left breast at 2:30 o'clock anterior depth. This was described on the previous ultrasound report. A surgical specimen was imaged for the previous biopsy site marker located in the left breast at 11 o'clock middle depth. This was described on the previous ultrasound report. IMPRESSION: SPECIMEN The imaged specimen includes the biopsy clip and the localization wire from the 2:30 o'clock position mass The imaged specimen includes a biopsy clip and the localization wire from the 11:00 o'clock position mass This exam was interpreted at Station ID: [id number]. Nikolas Correa M.D. aty/:02/24/2019 15:22:25
--- NOTE | 2019-02-24 06:43 | DI.NM.S_ITS ---
PROCEDURE: NM SENTINEL NODE W IMAGING RADIOPHARMACEUTICAL: 0.5-1.0 mCi Millipore filtered Tc-99m sulfur colloid. INDICATIONS: LEFT BREAST TECHNIQUE: The area around the nipple was prepped and draped in a sterile fashion. Tc-99m sulfur colloid was injected intra-dermally in the outer edge of the areola in the left breast. Images were obtained subsequently. A body contour outline was obtained. FINDINGS: There is no lymph node in the left breast or ipsilateral axilla. IMPRESSION: No sentinel lymph node is not identified. Dictated by: Cindy Barajas M.D. on 02/24/2019 at 13:00 Approved by: Cindy Barajas M.D. on 02/24/2019 at 17:02
--- NOTE | 2019-02-24 06:43 | DI.MG.S_ITS ---
MULTIPLE DIGITAL MAMMOGRAPHY GUIDED WIRE LOCALIZATION LEFT BREAST WITH POST MAMMOGRAPHIC IMAGING- POST-NEEDLE BIOPSY: 02/24/2019 CLINICAL: Left breast cancer. Correlation is made to exams dated: 01/22/2019 mammogram, 12/30/2018 mammogram, and 12/01/2018 mammogram - [facility]. A wire localization using digital mammography guidance was performed for the 0.9 cm x 1 cm x 0.8 cm mass located in the left breast at 2:30 o'clock anterior depth 6 cm from the nipple. This was described on the previous ultrasound report. The skin was prepped in the usual manner. Local anesthetic was administered to the access site. The localization was approached from the lateral aspect. A wire was inserted into the targeted area under digital mammography guidance. Post placement mammographic imaging was obtained. A wire localization was performed for the 0.7 cm x 0.5 cm mass located in the left breast at 11 o'clock middle depth 9 cm from the nipple. This was described on the previous ultrasound report. The skin was prepped in the usual manner. Local anesthetic was administered to the access site. The localization was approached from the craniocaudal aspect. A wire was inserted into the targeted area. Post placement mammographic imaging was obtained. IMPRESSION: WIRE LOCALIZATION Wire localization for the 0.9 cm x 1 cm x 0.8 cm mass in the left breast at 2:30 o'clock anterior depth 6 cm from the nipple was successful from the lateral approach. The proximal edge of the thick part of the wire projects adjacent (posterolateral) to the biopsy marker on the CC view and superiorly to the marker on the lateral view. The distal tip projects approximately 2.7 cm distal to the marker on CC view and 3.0 cm posterior/distal to the marker on the lateral view . A surgical excision is recommended as the patient is scheduled for surgery later today. Wire localization for the 0.7 cm x 0.5 cm mass in the left breast at 11 o'clock middle depth 9 cm from the nipple was successful from a craniocaudal approach. The distal tip of the wire is at the level of the biopsy marker on the lateral view and approximately 8 mm posteromedial to the marker on the CC view. The center of the thick part of the wire is approximately 1.0 cm superior and posterior to the marker on the lateral view and approximately 7mm medial to the marker on the CC view. A surgical excision is recommended as the patient is scheduled for surgery later today. This exam was interpreted at Station ID: [id number]. Nikolas Correa M.D. aty/:02/24/2019 12:15:26
--- NOTE | 2019-02-24 09:46 | SUR.PREOP ---
Late entry: Pt back from IR, will need to go back for 2nd portion of proceedure, assisted to bed, c/o shoulder pain, ice pack applied, pt stated it helped with discomfort.
[2019-02-24] MEDS: LACTATED RINGERS 1,000 ML 100 ML IV (11:45)
--- NOTE | 2019-02-24 11:46 | SUR.PREOP ---
Back from IR, IV connected.
[2019-02-24] MEDS: CEFAZOLIN 2 GM/100 ML FROZ.PIGGY IV (13:20)
--- NOTE | 2019-02-24 13:37 | SUR.OPER ---
Supine on padded OR bed, head on pillow, arms secured on padded arm boards at <90 degrees abduction, legs uncrossed, safety belt at thigh, tape over blanket over lower legs.
[2019-02-24] MEDS: BUPIVACAINE 0.25% (PF) VIAL 30 ML INJ (14:40)
[2019-02-24] MEDS: METHYLENE BLUE 50 MG/10 ML VIAL INJ (14:40)
--- NOTE | 2019-02-24 15:18 | P.OP_ITS ---
Operative Date/Time/Diagnoses Date of procedure: 02/24/19 Time of procedure: 15:18 Pre-op diagnosis: Left breast cancer Post-op diagnosis: same Procedure & Clinicians Procedure: Left lumpectomy x2 [place] lymph node biopsy Same procedure as scheduled: Yes Indications: This 79-year-old woman found to have left breast cancer, no clinical axillary disease. She has 3 abnormal breast lesions. -2 o'clock 1 cm mass biopsy-proven invasive ductal carcinoma -<1 cm satellite lesion adjacent to the biopsy proven cancer -11 o'clock <1 cm for biopsy-proven atypical ductal hyperplasia Surgeon: Shahram Bates Anesthesia Type: General Operative Notes Findings: Wire and clip within both specimens. Specimen(s): other (11:00 o'clock left breast mass, 2:00 o'clock left breast mass. Superior inferior medial lateral posterior margins for each breast mass. [place] lymph node biopsy) Estimated Blood Loss (mL): 20 Procedure in detail: The patient underwent needle localized prior to the operation. They were brought to the operating room and placed supine on the table. Bilateral lower extremity compression devices were applied. They were intubated with an LMA. There were prepped and draped in sterile fashion. Time- out was performed to ensure the correct patient procedure necessary equipment within the operating room. 5 ml of methylene blue was injected into intradermal areolar tissue and massaged. A linear incision on the superior aspect of the left breast was made and the subcutaneus tissues were divided. The localizing wire was identified and then brought back within the incision. A core of tissue was circumferentially exicsed that included the mass clip and wire. It was marked short stich superior long stich lateral. Imaging demonstrated that the specimen contained the wire and the associated clip. Additional margins were taken superior, inferior, medial, lateral and posterior. The subcutaneous tissues were reapproximated with 3 0 Vicryl sutures skin closed with Monocryl. A curilinear incision on the lateral aspect of the left breast was made and the subcutaneus tissues were divided. The localizing wire was identified and then brought back within the incision. A core of tissue was circumferentially exicsed that included the mass clip and wire. It was marked short stich superior long stich lateral. Imaging demonstrated that the specimen contained the wire and the associated clip. Additional margins were taken superior, inferior, medial, lateral and posterior. The axillary nodes could be accessed via the lateral incision. The aura probe was used to identify the wiley tissue with the highest counts and three portions of lymphatic tissue were excised and sent as sentinel node. There was no pathologicaly palpable lymph nodes. Hemostasis was checked. The subcutaneous tissues were reapproximated with 3 0 Vicryl sutures skin closed with Monocryl.followed by application of Dermabond and Steri-Strips. 0.2/5% bupivacaine was infiltrated into the skin. Post-operative Condition: stable Disposition: same day surgery
[2019-02-24] MEDS: fentaNYL 100 MCG/2 ML INJ IV ×2 (15:19→15:28)
[2019-02-24] MEDS: OXYCODONE/ACETAMINOPHEN 5/325 TABLET 1 TAB PO ×2 (15:37→16:49)
== END 2019-02-24 17:10 | disposition home or self-care (01) ==
PROVIDERS: PCP Internal Medicine; Visit Provider Surgery
PROC: (CPT 19301; principal; 2019-02-24 12:45)
DX: C50.912 Malignant neoplasm of unspecified site of left female breast (principal); Z17.0 Estrogen receptor positive status [ER+]
CPT/HCPCS: 38525; 19301; 19281; 76098; 78195; A9541; J0690; J1100; J2405; J2704; J3010; Q9968

== ENCOUNTER → 2019-07-06 10:39 | Outpatient (CLI) | payer MEDICARE, SELFPAY ==
[2019-07-06 11:04] LABS: Add Manual Diff / Slide Review NO; Basophils Absolute Auto 100 /uL (0-100); Basophils Percent Auto 1.1 % (0-2); Eosinophils Absolute Auto 300 /uL (0-450); Eosinophils Percent Auto 4.1 % (2-4); Hematocrit 42.3 % (36-46); Lymphocytes Absolute Auto 1300 /uL (1100-4500); Lymphocytes Percent Auto 20.3 % (25-40); Mean Corpuscular Hemoglobin 31.3 PG (26-34); Mean Corpuscular Volume 94.8 fL (80-100); Monocytes Absolute Auto 500 /uL (0-900); Neutrophils Absolute Auto 4100 /uL (1500-7000); Neutrophils Percent Auto 66.5 % (50-75); Platelet Count 188 X10^3/uL (150-400); Red Blood Cell Count 4.46 X10^6/uL (4.0-5.2); White Blood Cell Count 6.2 X10^3/uL (4.5-11.0)
[2019-07-06 11:20] LABS: Alanine Aminotransferase 222 IU/L (<35); Albumin 4.1 g/dL (3.5-5.0); Albumin Globulin Ratio 1.2 (1.0-2.8); Alkaline Phosphatase 78 U/L (38-126); Aspartate Aminotransferase 253 IU/L (14-36); BUN Creatinine Ratio 22.4 (6-22); Bilirubin Total 0.6 mg/dL (0.2-1.3); Blood Urea Nitrogen 15 mg/dL (7-17); Calcium 9.3 mg/dL (8.4-10.2); Carbon Dioxide 28 mmol/L (22-32); Chloride 104 mmol/L (98-107); Estimated Glomerular Filt Rate > 60.0 mL/min (>60); Globulin 3.5 g/dL (1.7-4.1); Glucose 89 mg/dL (80-110); HEMOLYSIS < 15 (0-50); Potassium 4.2 mmol/L (3.4-5.1); Sodium 138 mmol/L (137-145); Total Protein 7.6 g/dL (6.3-8.2)
== END ==
PROVIDERS: Family Provider Surgery; PCP Internal Medicine; Referring Provider Internal Medicine Hematology & Oncology; Visit Provider Internal Medicine Hematology & Oncology
DX: C50.919 Malignant neoplasm of unspecified site of unspecified female breast (principal)
CPT/HCPCS: 36415; 80053; 85025

== ENCOUNTER → 2019-07-09 11:14 | Outpatient (CLI) | payer MEDICARE, SELFPAY ==
--- NOTE | 2019-07-09 11:21 | DI.CT.S_ITS ---
PROCEDURE: CT ABDOMEN W CON INDICATIONS: breast cancer, persistent transaminitis TECHNIQUE: After the administration of oral and intravenous contrast, 5 mm thick sections acquired from the diaphragms to the iliac crests. 5 mm thick coronal and sagittal reformats were acquired. For radiation dose reduction, the following was used: automated exposure control, adjustment of mA and/or kV according to patient size. COMPARISON: [facility], CT, CT HORN, 04/13/2019, 9:53. FINDINGS: Image quality: Excellent. Lung bases: Lung bases are clear. Heart size is normal. Solid organs: Liver is normal in size. Multiple probable hepatic cysts. There is a hemangioma of the left lobe of the liver on image 20/2 measuring 2.1 cm. No suspicious liver lesions identified. Gallbladder large impacted gallstone in the gallbladder neck. No gallbladder wall thickening or fluid around the gallbladder.. Biliary system is non dilated. Pancreas enhances normally. Spleen is normal in size and enhancement. No adrenal nodules. Kidneys are normal in size, without hydronephrosis. Peritoneum and bowel: Large hiatal hernia. Contrast enhanced bowel loops appear normal in caliber. No free fluid or air. Nodes and vessels: No retroperitoneal or mesenteric adenopathy by size criteria. Aorta and inferior vena cava are normal in size. 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 Bones: No suspicious bony lesions. No vertebral body compression fractures. Degenerative anterolisthesis of L4 on L5 measuring 9 mm results in severe canal stenosis, severe right foraminal stenosis and moderate to severe left foraminal stenosis. Miscellaneous: No ventral hernias. IMPRESSION: 1. No suspicious liver lesions. No dilated ducts. 2. Left lobe liver hemangioma. 3. Large gallstone impacted in the gallbladder neck. 4. Large hiatal hernia. 5. At L4-L5, there is severe canal stenosis, severe right foraminal stenosis, and moderate to severe left foraminal stenosis. Dictated by: Jeferson Sánchez M.D. on 07/09/2019 at 12:50 Approved by: Jeferson Sánchez M.D. on 07/09/2019 at 12:55
[2019-07-09 13:13] LABS: Alanine Aminotransferase 204 IU/L (<35); Aspartate Aminotransferase 226 IU/L (14-36); Gamma Glutamyl Transpeptidase 34 U/L (12-43)
[2019-07-13 12:36] LABS: Aldolase 13.7 U/L (3.3-10.3)
== END ==
PROVIDERS: Family Provider Surgery; PCP Internal Medicine; Referring Provider Internal Medicine Hematology & Oncology; Visit Provider Internal Medicine Hematology & Oncology
DX: C50.412 Malignant neoplasm of upper-outer quadrant of left female breast (principal); C50.812 Malignant neoplasm of overlapping sites of left female breast; R74.0 Nonspecific elevation of levels of transaminase and lactic acid dehydrogenase [LDH]; R23.2 Flushing; K44.9 Diaphragmatic hernia without obstruction or gangrene; K80.20 Calculus of gallbladder without cholecystitis without obstruction; M48.061 Spinal stenosis, lumbar region without neurogenic claudication; D18.09 Hemangioma of other sites; Z17.0 Estrogen receptor positive status [ER+]
CPT/HCPCS: 36415; 74160; 82085; 82550; 82553; 82977; 84450; 84460

== ENCOUNTER → 2020-01-25 11:02 | Outpatient (CLI) | payer MEDICARE, SELFPAY ==
--- NOTE | 2020-01-25 | DI.RAD.S_ITS ---
PROCEDURE: XR KNEE LT 3V INDICATIONS: PAIN IN LT KNEE TECHNIQUE: 3 views of the knee were acquired. COMPARISON: None. FINDINGS: Bones: No fractures or dislocations. No suspicious bony lesions. Soft tissues: No joint effusion. Moderate knee joint space narrowing indicating moderate degenerative osteoarthritis at the medial compartment and the lateral facet of the patellofemoral joint. No suspicious soft tissue calcifications. 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 Dictated by: Vitaly Lozano M.D. on 01/25/2020 at 12:54 Approved by: Vitaly Lozano M.D. on 01/25/2020 at 12:55
== END ==
PROVIDERS: Family Provider Surgery; PCP Internal Medicine; Referring Provider Internal Medicine; Visit Provider Internal Medicine
DX: M25.562 Pain in left knee (principal); M17.12 Unilateral primary osteoarthritis, left knee
CPT/HCPCS: 73562

== ENCOUNTER → 2021-09-20 07:42 | Outpatient (CLI) | payer MEDICARE, SELFPAY ==
--- NOTE | 2021-09-20 | DI.ECHO.S_ITS ---
[facility] +---------+ : : [address] [place] : : : : [id number] : : : : Phone: [phone]+ Echocardiogram Report + + :Name: CAMPBELL GOMEZ Study Date: 09/20/2021 Height: 70 in : :[facility] ReadingLocation: Weight: 190 lb : : Gender: Female BSA: 2.0 m2 : :: 1940 Age: 81 yrs BP: 166/100 mmHg: :Reason For Study: DYSPNEA : :Ordering Physician: FATMATA : :ESTEBAN Performed By: Savanna Mera : :Referring: ESTEBAN AVILEZ : + + Interpretation Summary 1) Normal left ventricular thickness, size, wall motion, and systolic function (EF 55-60%). 2) Normal right ventricular size and function. 3) No significant valvular abnormalities. 4) The right ventricular systolic pressure is estimated to be at least 33 mmHg based on an estimated right atrial pressure of 3 mm Hg. 5) No prior Echo available for comparison. Procedure: A two-dimensional transthoracic echocardiogram with color flow and Doppler was performed. The study quality was technically adequate. There is no prior echocardiogram noted for this patient. A contrast injection of Definity was performed to improve assessment of LV function. The patient was in sinus rhythm with heart rates between 65-77 bpm during the exam. Left Ventricle: The left ventricle is normal in size and wall thickness. The ejection fraction is estimated to be 55-60%. Left ventricular systolic function appears normal without focal wall motion abnormalities. Right Ventricle: The right ventricle is normal in size and function. Atria: The left atrial size is normal. Right atrial size is normal. There is no Doppler evidence for an interatrial shunt. Mitral Valve: The mitral valve is normal in structure and function. There is mild mitral regurgitation. Aortic Valve: The aortic valve is trileaflet. The aortic valve opens well. There is no aortic valve stenosis. No aortic regurgitation is present. Tricuspid Valve: The tricuspid valve is normal in structure and function. There is mild tricuspid regurgitation. The right ventricular systolic pressure is estimated to be at least 33 mmHg based on an estimated right atrial pressure of 3 mm Hg. Pulmonic Valve: The pulmonic valve leaflets are thin and pliable; valve motion is normal. There is trace pulmonic regurgitation. Great Vessels: The aortic root is normal size. The dimensions of the ascending aorta are normal. The IVC is of normal diameter and collapses greater than 50% with a sniff. This suggests a low right atrial pressure of 3 mm Hg. Pericardium/ Pleura There is no pericardial effusion. There is no pleural effusion. MMode/2D Measurements & Calculations LVIDd: 4.2 cm LVOT diam: 2.2 cm LVIDs: 2.7 cm Ao root diam: 3.3 cm FS: 35.9 % asc Aorta Diam: 2.8 cm IVSd: 0.91 cm Ao Arch Diam (Prox Trans): 2.6 cm LVPWd: 0.94 cm LV luna. diameter/BSA (cm/m^2): 2.0 LV sys. diameter/BSA (cm/m^2): 1.3 LA A2 area: 19.1 cm2 RA long axis: 6.0 cm LA A4 area: 23.5 cm2 RA area: 19.0 cm2 LA length (vol): 5.9 cm RA vol: 51.3 ml LA vol: 64.3 ml RA : 25.1 ml/m2 LA vol index: 31.5 ml/m2 IVC diam: 1.4 cm RVD1 (basal): 3.3 cm RVD2 (mid): 2.3 cm TAPSE: 2.2 cm Doppler Measurements & Calculations Ao V2 max: 108.4 cm/sec LVOT Max Chito: 87.1 cm/sec Ao V2 mean: 82.3 cm/sec LV V1 max P.0 mmHg Ao max P.7 mmHg LV V1 VTI: 17.5 cm Ao mean P.9 mmHg JULIANNA(I,D): 3.2 cm2 Ao V2 VTI: 21.9 cm JULIANNA(V,D): 3.2 cm2 sev ratio: 0.80 JULIANNA indexed to BSA (cm^2/m^2): 1.6 MV E max chito: 76.2 cm/sec TR max chito: 275.6 cm/sec MV A max chito: 73.2 cm/sec TR max P.4 mmHg MV E/A: 1.0 PA V2 max: 78.7 cm/sec Med Peak E' Chito: 4.6 cm/sec PA V2 mean: 55.4 cm/sec E/E' med: 16.6 PA mean P.4 mmHg Lat Peak E' Chito: 6.6 cm/sec PA pr(Accel): 32.8 mmHg E/E' lat: 11.6 E/e' average: 14.1 MV dec time: 0.19 sec SV(LVOT): 69.5 ml Reading Physician:11:45 AM
== END ==
PROVIDERS: Family Provider Surgery; PCP Internal Medicine; Referring Provider Internal Medicine; Visit Provider Internal Medicine
DX: R06.00 Dyspnea, unspecified (principal)
CPT/HCPCS: C8929; Q9957

== ENCOUNTER → 2023-12-19 10:09 | Outpatient (CLI) | payer MEDICARE, SELFPAY ==
--- NOTE | 2023-12-19 10:11 | DI.RAD.S_ITS ---
PROCEDURE: XR DEXA AXIAL SKELETON INDICATIONS: POSTMENOPAUSAL STATUS COMPARISON: [facility], CR, XR DEXA AXIAL SKELETON, 12/01/2018, 13:54. FINDINGS: Lumbar Spine: Bone mineral density 0.995 g/cm2, T score -0.5. Prior DEXA was performed using dissimilar scan type or analysis method. Left Hip: Bone mineral density is 0.863 g/cm2, T score -0.6. Prior DEXA was performed using dissimilar scan type or analysis method. Left Femoral Neck: Bone mineral density 0.744 g/cm2, T score -0.9. Right Hip: Bone mineral density 0.875 g/cm2, T score -0.5. Prior DEXA was performed using dissimilar scan type or analysis method. Right Femoral Neck: Bone mineral density 0.722 g/cm2, T score -1.1. Fracture Risk Calculation (when applicable): 10-year fracture risk of a major osteoporotic fracture 21% and of a hip fracture 12%. (T score greater or equal to -1.0 to: NORMAL) (T score from -1.1 to -2.4: OSTEOPENIA) (T score less than or equal to -2.5: OSTEOPOROSIS) IMPRESSION: By WHO criteria, patient has osteopenia. High FRAX score is noted. Follow-up guidelines as follows: Osteoporosis: Consider a repeat DEXA and Vertebral Fracture Assessment (VFA) exam in 2 years or sooner if medically necessary, to reassess this patient's status. Osteopenia: Consider a repeat DEXA in 2-3 years to reassess this patient's status, or if there is a new clinical indication. Normal: Consider a repeat DEXA in 5 years or sooner, or if there is a new clinical indication. All treatment decisions require clinical judgment and consideration of individual patient factors, including patient preferences, comorbidities, previous drug use, risk factors not captured in the FRAX model (e.g., frailty, falls, vitamin D deficiency, increased bone turnover, interval significant decline in bone density ) and possible under- or over-estimation of fracture risk by FRAX. In addition, the NOF Guide recommends that FDA-approved medical therapies be considered in postmenopausal women and men age >= 50 years with a: * Hip or vertebral (clinical or morphometric) fracture * T-score of <=-2.5 at the spine or hip * Ten-year fracture probability by FRAX of >= 3% for hip fracture or >=20% for major osteoporotic fracture. People with diagnosed cases of osteoporosis or at high risk for fracture should have regular bone mineral density tests. For patients eligible for Medicare, routine testing is allowed once every 2 years. The testing frequency can be increased to one year for patients who have rapidly progressing disease, those who are receiving or discontinuing medical therapy to restore bone mass, or have additional risk factors. Approved by: Danial Valle M.D. on 12/19/2023 at 20:57
== END ==
PROVIDERS: Family Provider Surgery; PCP Internal Medicine; Referring Provider Internal Medicine; Visit Provider Internal Medicine
DX: M85.851 Other specified disorders of bone density and structure, right thigh (principal); Z78.0 Asymptomatic menopausal state
CPT/HCPCS: 77080